=== PATIENT | male | born 2000 | race Caucasian/White ===

== ENCOUNTER 2022-01-23 15:36 | Emergency (ER) | payer OTHER ==
[~2022-01-23] VITALS: Ht 177.8 cm; Wt 57.3 kg
[2022-01-23] MEDS ORDERED: DIPHTH,PERTUSS(ACELL),TET TOX 0.5 ML DISP.SYRIN. VAX IM ONE ×2 (18:00→18:52)
[2022-01-23] MEDS ORDERED: GLUCOSE PO ONE (18:00)
[2022-01-23] MEDS ORDERED: GELATIN SPONGE SIZE 100. TP ONE (18:45)
[2022-01-23] MEDS ORDERED: GELATIN SPONGE SIZE 12-7MM SPONGE. ONE (18:52)
--- NOTE | 2022-01-23 19:12 | PHYS DOC ---
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 Patient is right-handed. Review of Systems: Review of Systems: Constitutional: Denies fever or chills. [] Musculoskeletal: Denies back pain or joint pain. [] Integument: Reports right index finger laceration Neurologic: Denies headache, focal weakness or sensory changes. [] Psychiatric: Denies depression or anxiety. [] Heart Score: C/O Chest Pain: N/A Risk Factors: Risk Factors: DM, Current or recent (<one month) smoker, HTN, HLP, family history of CAD, obesity. Risk Scores: Score 0 - 3: 2.5% MACE over next 6 weeks - Discharge Home Score 4 - 6: 20.3% MACE over next 6 weeks - Admit for Clinical Observation Score 7 - 10: 72.7% MACE over next 6 weeks - Early Invasive Strategies Current Medications: Current Medications Medications (Trade) Dose Ordered Sig/Brisa Start Time Stop Time Status Last Admin Dose Admin Diphtheria/ Tetanus/Acell Pertussis (Boostrix) 0.5 ml ONCE ONCE 01/23/22 18:00 01/23/22 18:01 UNV Gelatin (Gelfoam Size 100) 1 each 1X ONCE 01/23/22 18:45 01/23/22 18:46 UNV 01/23/22 18:45 1 EACH Glucose (Insta-Glucose 24gm Gel) 24 gm 1X ONCE 01/23/22 18:00 01/23/22 18:01 UNV Tranexamic Acid (Cyklokapron) 1,000 mg 1X ONCE 01/23/22 18:00 01/23/22 18:01 UNV Allergies: Allergies: Allergies Coded Allergies Type Severity Reaction Last Updated Verified No Known Drug Allergies 01/23/22 No Physical Exam: PE: Constitutional: Well developed, well nourished, no acute distress, non-toxic appearance. [] Skin: Distal end of the right index finger ulnar aspect with a skin avulsion roughly 2 x 0.5 cm currently bleeding, pressure applied to the area, there is no tendon involvement, no bony involvement that can be noted. Adequate radial sensation to the right index finger. +2 right radial pulse. Cap refill less than 2 seconds of right index finger. Back: No tenderness, no CVA tenderness. [] Extremities: No tenderness, no cyanosis, no clubbing, ROM intact, no edema. [] Neurologic: Alert and oriented X 3, normal motor function, normal sensory function, no focal deficits noted. [] Psychologic: Affect normal, judgement normal, mood normal. [] Current Patient Data: Vital Signs: Vital Signs Date Time Temp Pulse Resp B/P (MAP) Pulse Ox O2 Delivery O2 Flow Rate FiO2 01/23/22 17:00 96.1 88 14 121/72 (88) 100 Room Air 96.1 EKG: EKG: [] Radiology/Procedures: Radiology/Procedures: [] Course & Med Decision Making: Course & Med Decision Making Pertinent Labs and Imaging studies reviewed. (See chart for details) This a 21-year-old male patient who presents to the ED today with right index finger skin avulsion after cutting himself on a meat manager. Right index finger x-rays are negative for any acute findings. Tetanus is up-to-date. Bleeding was stopped with Gelfoam. Discharged to home. Wound care instructions and return precautions provided Dragon Disclaimer: Mercedes Disclaimer: This electronic medical record was generated, in whole or in part, using a voice recognition dictation system. Departure Departure Impression: Primary Impression: Avulsion of skin of index finger without complication Qualified Codes: S61.208A - Unspecified open wound of other finger without damage to nail, initial encounter Disposition: HOME / SELF CARE / HOMELESS Condition: STABLE Referrals: NO PCP (PCP) follow up with your doctor in one week Patient Instructions: Deep Skin Avulsion Additional Instructions: You have a laceration to your right index finger. Keep the dressing on for 24 hours, after 24 hours he can change the dressing. Apply Neosporin to the area twice a day. You can wash the area once a day after 24 hours, if the area is not bleeding or draining you can leave it open to air after 5 days. Monitor the area for any signs of infection including but not limited to increased redness, warmth, yellow drainage from the area and return to the ED today SANDRITA BRAVO APRN January 23, 2022 19:12
[2022-01-23 19:30] VITALS: BP 118/70
[2022-01-23] MEDS ORDERED: TRANEXAMIC ACID 1,000 MG/10 ML VIAL. TOP ONE (19:30)
--- NOTE | 2022-01-24 12:22 | RAD ---
EXAM: XR FINGER(S)_RIGHT 2+VIEWS 01/23/2022 5:36 PM CLINICAL INDICATION: Index finger injury, pain COMPARISON: None TECHNIQUE: PA, oblique, and lateral views of the right index finger FINDINGS: There is a soft tissue laceration at the tip of the second finger. No radiopaque foreign b malini. No acute osseous abnormality. Alignment is normal. IMPRESSION: Soft tissue laceration at the second finger tip. No acute osseous abnormality or radiopa que foreign body. Electronically signed by: Sonal Ryder MD (01/23/2022 6:52 PM) [facility]
== END 2022-01-23 19:30 | disposition home or self-care (01) ==
LOC: ER 15:36
DX: S61.210A Laceration without foreign body of right index finger without damage to nail, initial encounter (principal); W27.8XXA Contact with other nonpowered hand tool, initial encounter; Y93.89 Activity, other specified; Y92.89 Other specified places as the place of occurrence of the external cause; Y99.8 Other external cause status
CPT/HCPCS: 73140; 99283